=== PATIENT | male | born 1980 | race African-American/Black ===

== ENCOUNTER 2020-06-23 18:12 | Inpatient (IN) | payer SELFPAY ==
[~2020-06-23] VITALS: Ht 177 cm; Wt 95.7 kg
[2020-06-23] VITALS (11 sets, daily range): BP systolic 149–171; BP diastolic 106–120
[~2020-06-23 18:12] MED LIST: CYCL10TA9 PO; HYDR-34 PO
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
[2020-06-23] MEDS ORDERED: TETANUS,DIPTH,PERTUSS P/F (BOOSTRIX) 0.5 ML VIAL IM ONE (18:30)
[2020-06-23 18:41] LABS: HEMOGLOBIN 13.8 g/dL (13.3-17.7); MEAN PLATELET VOLUME 9.5 fL (9.0-12.2); WHITE BLOOD COUNT 9.6 10^3/uL (4.3-11.0)
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
[2020-06-23 18:50] LABS: ALBUMIN 4.4 GM/DL (3.2-4.5); CHLORIDE 106 MMOL/L (98-107); POTASSIUM 3.8 MMOL/L (3.6-5.0); SODIUM 140 MMOL/L (135-145)
[2020-06-23 18:52] LABS: CALCIUM 9.1 MG/DL (8.5-10.1)
[2020-06-23 18:53] LABS: GLUCOSE 90 MG/DL (70-105); TOTAL PROTEIN 8.4 GM/DL (6.4-8.2)
[2020-06-23 18:54] LABS: CARBON DIOXIDE 21 MMOL/L (21-32)
[2020-06-23 18:55] LABS: BILIRUBIN,TOTAL 0.4 MG/DL (0.1-1.0)
[2020-06-23 18:56] LABS: ALKALINE PHOSPHATASE 66 U/L (40-136)
[2020-06-23 18:57] LABS: CREATININE SERUM 0.94 MG/DL (0.60-1.30); GFR ESTIMATED > 60
[2020-06-23 18:58] LABS: BILIRUBIN,DIRECT 0.1 MG/DL (0.0-0.3); BILIRUBIN,INDIRECT 0.3 MG/DL; BUN/CREATININE RATIO 7
[2020-06-23 19:00] LABS: ALANINE AMINOTRANSFERASE 14 U/L (0-55)
[2020-06-23] MEDS ORDERED: LIDOCAINE PF 2% 5 ML (XYLOCAINE) VIAL ONE (19:07)
[2020-06-23] MEDS ORDERED: ROCURONIUM 10 MG/ML 5 ML SYRINGE IV ONE (19:07)
[2020-06-23] MEDS ORDERED: fentaNYL INJECTION 100 MCG/2 ML AMP ONE ×2 (19:07→19:53)
[2020-06-23] MEDS ORDERED: proPOfol 200 MG/20 ML (DIPRIVAN) VIAL IV ONE (19:07)
[2020-06-23] MEDS ORDERED: MIDAZOLAM 2 MG/2 ML (VERSED) VIAL ONE (19:07)
[2020-06-23] MEDS ORDERED: SUCCINYLCHOLINE INJ 100 MG/5 ML SYR/VIAL ONE (19:07)
[2020-06-23] MEDS ORDERED: ONDANSETRON 4 MG/2 ML (SDV) Z0FRAN ONE (19:07)
[2020-06-23] MEDS ORDERED: ONDANSETRON 4 MG/2 ML (SDV) Z0FRAN IVP PRN ×2 (19:15→19:45)
[2020-06-23] MEDS ORDERED: morphine INJ 10 MG/ML 1ML (SYR OR VIAL) IVP PRN (19:15)
[2020-06-23] MEDS ORDERED: ACETAMINOPHEN 325 MG TABLET PO PRN (19:15)
[2020-06-23] MEDS ORDERED: oxyCODONE/APAP 5/325MG (PERCOCET 5) TABLET PO PRN (19:15)
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
[2020-06-23] MEDS ORDERED: HYDR-3817 PO (19:21)
--- NOTE | 2020-06-23 19:21 | Discharge Inst-Surgical ---
D/C Lap Instructions-CHERELLE New, Converted, or Re-Newed RX: RX on Chart Follow Up Appt in 2 weeks Activity as tolerated No driving for 24 hours No driving while on pain medications Incentive Spirometry use every 2 hours while awake Regular Diet Symptoms to Report: Fever over 101 degree F, Nausea/Vomiting Infection Signs and Symptoms to report: Increased redness, Foul odor of wound, Increased drainage Bathing instructions: May shower Operative Area Clean/Dry; Keep incision clean/dry If any problems/questions: Contact your physician or go to Emergency Room MAYELA VILLARREAL MD Jun 23, 2020 19:21
[2020-06-23] MEDS ORDERED: HEParin (CENTRAL IV FLUSH) 500 UNIT/5 ML SYR ONE (19:27)
[2020-06-23] MEDS ORDERED: ceFAZolin INJECTION 2,000 MG ONE (19:27)
[2020-06-23] MEDS ORDERED: metroNIDAZOLE 500MG/100ML IVPB 100 ML ONE (19:27)
[2020-06-23] MEDS ORDERED: WATER (STERILE) FOR INJECTION 40 ML ONE (19:27)
[2020-06-23] MEDS ORDERED: MEPERIDINE (DEMEROL) INJ 50 MG/ML IVP ONE (19:45)
[2020-06-23] MEDS ORDERED: LACTATED RINGERS 1,000 ML IV PRN (19:45)
[2020-06-23] MEDS ORDERED: fentaNYL INJECTION 100 MCG/2 ML AMP IVP ONE (19:45)
[2020-06-23] MEDS ORDERED: morphine INJ 10 MG/ML 1ML (SYR OR VIAL) IVP ONE (19:45)
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
[2020-06-23] MEDS ORDERED: SEVOFLURANE (ULTANE) 15 ML INHAL SOLN ONE (20:06)
[2020-06-23] MEDS ORDERED: BUPIVACAINE 0.5% 30 ML (SENSORCAINE) VIAL ONE (20:13)
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
[2020-06-23] MEDS ORDERED: RT-ALBUTEROL SULF 2.5 MG/3 ML PRE-MIX VIAL ONE (20:57)
[2020-06-23] MEDS ORDERED: LABETALOL HCL 20 MG/4 ML VIAL ONE (20:59)
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
[2020-06-23] MEDS ORDERED: NALOXONE 0.4 MG/ML 1 ML (NARCAN) VIAL ONE (21:07)
[2020-06-23] MEDS ORDERED: hydrALAZINE (APESOLINE) 20 MG/ML VIAL ONE (21:15)
[2020-06-23] MEDS ORDERED: SUGAMMADEX 500 MG/5 ML VIAL (BRIDION) IV ONE (21:40)
--- NOTE | 2020-06-23 21:40 | Diagnostic Imaging Report ---
EXAMINATION: Chest 1 view. HISTORY: Evaluate left subclavian central line. COMPARISON: Chest radiograph performed earlier the same date. FINDINGS: A left central line is visualized, the tip overlying the mid SVC. Development of hazy opacities are seen throughout the lungs, favored to represent differences in technique. No focal consolidation. No pleural effusion or pneumothorax. Stable cardiac silhouette. IMPRESSION: 1. Interval placement of a left central line with the tip overlying the mid SVC. 2. Development of hazy opacities throughout the lungs, favored to represent differences in technique. Atelectasis or edema may also contribute to this appearance. Dictated by: Dictated on workstation # [id number]
[2020-06-23] MEDS: morphine INJ 10 MG/ML 1ML (SYR OR VIAL) IVP PRN (22:51)
[2020-06-23] MEDS ORDERED: RT-ALBUTEROL SULF 2.5 MG/3 ML PRE-MIX VIAL INH ONE (23:00)
[2020-06-23] MEDS ORDERED: LABETALOL HCL 100 MG/20 ML VIAL IV ONE (23:00)
[2020-06-23] MEDS ORDERED: hydrALAZINE (APESOLINE) 20 MG/ML VIAL IV ONE (23:00)
[2020-06-24] MEDS: morphine INJ 10 MG/ML 1ML (SYR OR VIAL) IVP PRN ×3 (00:37→05:05)
[2020-06-24 02:26] LABS: BASOPHILS % (AUTO) 0 % (0-10); EOSINOPHILS % (AUTO) 0 % (0-10); HEMATOCRIT 44 % (40-54); HEMOGLOBIN 14.6 g/dL (13.3-17.7); LYMPHOCYTES # (AUTO) 0.7 10^3/uL (1.0-4.0); LYMPHOCYTES % (AUTO) 5 % (12-44); MEAN CORPUSCULAR HEMOGLOBIN 28 pg (25-34); MEAN CORPUSCULAR HGB CONC 33 g/dL (32-36); MEAN CORPUSCULAR VOLUME 86 fL (80-99); MEAN PLATELET VOLUME 9.2 fL (9.0-12.2); MONOCYTES # (AUTO) 0.3 10^3/uL (0.0-1.0); MONOCYTES % (AUTO) 2 % (0-12); NEUTROPHILS # (AUTO) 13.1 10^3/uL (1.8-7.8); NEUTROPHILS % (AUTO) 92 % (42-75); PLATELET COUNT 367 10^3/uL (130-400); WHITE BLOOD COUNT 14.3 10^3/uL (4.3-11.0)
[2020-06-24 02:49] LABS: BUN/CREATININE RATIO 7; CALCIUM 8.9 MG/DL (8.5-10.1); CARBON DIOXIDE 21 MMOL/L (21-32); CHLORIDE 105 MMOL/L (98-107); CREATININE SERUM 0.88 MG/DL (0.60-1.30); GFR ESTIMATED > 60; GLUCOSE 132 MG/DL (70-105); MAGNESIUM 1.9 MG/DL (1.6-2.4); PHOSPHORUS 2.5 MG/DL (2.3-4.7); SODIUM 139 MMOL/L (135-145)
[2020-06-24 03:44] VITALS: BP 138/90
[2020-06-24 08:00] VITALS: BP 147/91
[2020-06-24] MEDS ORDERED: NICOTINE 21 MG (NICODERM) PATCH TD SCH (09:00)
[2020-06-24] MEDS ORDERED: PANTOPRAZOLE 40 MG (PROTONIX) VIAL IV SCH (09:00)
[2020-06-24] MEDS ORDERED: ENOXAPARIN 40 MG/0.4 ML (LOVENOX) SYR SC SCH (09:00)
--- NOTE | 2020-06-24 13:21 | Anesthesia-General Post-Op ---
General Patient Condition Mental Status/LOC: Same as Preop Cardiovascular: Satisfactory Nausea/Vomiting: Absent Respiratory: Satisfactory Pain: Controlled Complications: Absent Post Op Complications Complications None Follow Up Care/Instructions Patient Instructions None needed. Anesthesia/Patient Condition Patient Condition Patient discharged. Chart reviewed with no apparent adverse anesthesia problems noted D/C home per [facility] Criteria: Yes JAGJIT UREÑA CRNA Jun 24, 2020 13:21
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
== END 2020-06-24 10:47 | disposition home or self-care (01) | DRG 358 ==
LOC: EDUNIT# 18:12 → ER 18:14 → SDC 19:02 → CSD 19:02 → SDC 22:34 → CSD 06-24 10:47 → SDC 06-24 10:47
PROVIDERS: ADMIT Surgery; ATTEND Surgery
PROC: 0WJG0ZZ Inspection of Peritoneal Cavity, Open Approach (ICD-10-PCS; principal; 2020-06-23 19:14)
DX: S31.614A Laceration without foreign body of abdominal wall, left lower quadrant with penetration into peritoneal cavity, initial encounter (principal); F17.210 Nicotine dependence, cigarettes, uncomplicated; F12.90 Cannabis use, unspecified, uncomplicated; Z72.89 Other problems related to lifestyle; Z23 Encounter for immunization; Z79.891 Long term (current) use of opiate analgesic; Z20.822 Contact with and (suspected) exposure to COVID-19; X99.9XXA Assault by unspecified sharp object, initial encounter; Y92.096 Garden or yard of other non-institutional residence as the place of occurrence of the external cause
CPT/HCPCS: 36415; 71045; 80048; 80076; 80320; 83735; 84100; 85025; 85027; 86850; 86900; 86901; 87635; 90715; 93041